=== PATIENT | male | born 1995 | race Caucasian/White ===

== ENCOUNTER 2025-01-30 01:06 | Emergency (ER) | payer BC ==
[2025-01-30 01:13] VITALS: RESP 18
[2025-01-30] MEDS: ACETAMINOPHEN TAB 325 MG TAB PO STA (01:50)
[2025-01-30] MEDS: SODIUM CHLORIDE 0.9% 1,000 ML IV STA (01:52)
--- NOTE | 2025-01-30 01:54 | ED ---
General Adult HPI - General Chief complaint: Syncope Stated complaint: Syncope and Collapse Time Seen by Provider: 01/30/25 01:08 Source: EMS Mode of arrival: EMS Limitations: no limitations - History of Present Illness Initial comments: Patient is a previously healthy 29 y/o male presenting today for syncopal episode. Pt states he has not had much to eat or drink today and has had mylagias and chills. This evening he was sitting on the toilet to urinate when he began to feel dizzy and then his girlfriend heard a "thud'. Pt was found leaning forward into the bathtub appearing to have passed out. She was unable to wake him and he appeared pale. 911 was called and his girlfriend was able to wake the patient after about 30-45 seconds. Upon EMS arrival pt was noted to have a drop in his BP upon standing. Pt sustained a small bruise to the lateral right eye brow. No seizure like activity noted. No tongue biting or urinary incontinence. Pt has not hx of seizures or prior syncopal episodes. Lo grade fevers today, last took cold and flu medicine at approximately 8. He endorses generalized bodyaches, left predominant in his back and neck but denies neck stiffness. Endorses a nonproductive cough. Denies sore throat, runny nose, nausea, vomiting, diarrhea, chest pain, shortness of breath, focal numbness or weakness. No family history of sudden cardiac . Patient is not on blood thinners. - Related Data Previous Rx's Medication Instructions Recorded Oseltamivir [Tamiflu] 75 mg PO Q12HR 5 Days #9 cap 01/30/25 Allergies Allergy/AdvReac Type Severity Reaction Status Date / Time No Known Allergies Allergy Verified 01/30/25 01:47 Review of Systems ROS Statement: Those systems with pertinent positive or pertinent negative responses have been documented in the HPI. ROS Other: All systems not noted in ROS Statement are negative. General Exam - General Exam Comments Initial Comments: PE: CONSTITUTIONAL: No apparent distress, nontoxic appearing though somewhat ill- appearing SKIN: Warm, dry, no jaundice, hives or petechiae. Small contusion to the lateral right eyebrow EYES: Pupils are equally round, extraocular movements intact without nystagmus, clear conjunctiva, non-icteric sclera HENT: Normocephalic, atraumatic, with exception of small contusion noted above, no bony tenderness, bony instability or crepitus on or near this contusion, dry mucus membranes, oropharynx clear without exudates NECK: , Full range of motion, normal appearance, no midline spinal tenderness to palpation PULMONARY: Clear to auscultation without wheezes, rhonchi, or rales, normal excursion, no accessory muscle use and no stridor CARDIOVASCULAR: Regular rate, rhythm, normal S1 and S2. No appreciated murmurs, rubs or gallops. Strong radial pulses with intact distal perfusion. No lower extremity edema GASTROINTESTINAL: Soft, active bowel sounds throughout, non-tender, non- distended, no palpable masses, no rebound or guarding. No hepatosplenomegaly MUSCULOSKELETAL: Extremities have no gross deformity, no edema, redness, or swelling. No calf swelling NEUROLOGIC:_a/o x 3, GCS 15, normal mentation and speech. Moves all extremities x 4 without motor or sensory deficit, negative Kernig's and Brudzinski signs PSYCHIATRIC:_normal mood and affect, thought process is clear and linear Limitations: no limitations Course Vital Signs 01/30/25 01/30/25 01/30/25 01:08 04:22 04:47 Temperature 100.2 F H 99.2 F Pulse Rate 93 97 Respiratory 18 18 Rate Blood Pressure 129/69 115/56 O2 Sat by Pulse 96 99 Oximetry EKG Findings - EKG Comments: EKG Findings:: Sinus rhythm, rate 87 bpm ID interval 158 ms QT/QTc 329/374 ms, no ST elevations or depressions, no arrhythmia, no delta waves, no Brugada pattern, no STEMI, overall reassuring EKG Medical Decision Making - Medical Decision Making Was pt. sent in by a medical professional or institution (, PA, STEM ROLLER, urgent care, hospital, or senior care...) When possible be specific @ -No Did you speak to anyone other than the patient for history (EMS, parent, family, police, friend...)? What history was obtained from this source @ -I spoke with patient's girlfriend who assisted in providing history as noted above, she heard patient lose consciousness, found him unconscious for about 30 to 45 seconds and was with him when he woke up, no seizure-like activity noted Did you review nursing and triage notes (agree or disagree)? Why? @ -I reviewed nursing and triage notes-patient reportedly orthostatic positive on EMS assessment Were old charts reviewed (outside hosp., previous admission, EMS record, old EKG, old radiological studies, urgent care reports/EKG's, senior care records)? Report findings @ -Medical records reviewed no prior records available for review Differential Diagnosis (chest pain, altered mental status, abdominal pain women, abdominal pain men, vaginal bleeding, weakness, fever, dyspnea, syncope, headache, dizziness, GI bleed, back pain, seizure, CVA, palpatations, mental health, musculoskeletal)? @Differential Syncope: Valvular disease, hypertrophic cardiomyopathy, tamponade, arrhythmia, ACS, hypovolemia, hemorrhage, anemia, intracranial hemorrhage, seizure, hypoglycemia, this is not meant to be an all-inclusive list. EKG interpreted by me (3pts min.). @ -As above X-rays interpreted by me (1pt min.). @I personally reviewed chest x-ray, I see no evidence of gross consolidations, pleural effusions or cardiomegaly, I agree with radiologist interpretation CT interpreted by me (1pt min.). Personally reviewed CT brain, I see no evidence of hemorrhage, skull fracture or mass effect U/S interpreted by me (1pt. min.). @ -None done What testing was considered but not performed or refused? (CT, X-rays, U/S, labs)? Why? @ -None What meds were considered but not given or refused? Why? @ -None Did you discuss the management of the patient with other professionals (professionals i.e. , PA, STEM ROLLER, lab, RT, psych nurse, social media analyst, concession attendant, teacher, senior commercial loan officer, cyanide case hardener)? Give summary @ -No Was smoking cessation discussed for >3mins.? @ -No Was critical care preformed (if so, how long)? @ -No Were there social determinants of health that impacted care today? How? (Homelessness, low income, unemployed, alcoholism, drug addiction, transportation, low edu. Level, literacy, decrease access to med. care, care home, rehab)? @ -No Was there de-escalation of care discussed even if they declined (Discuss DNR or withdrawal of care, Hospice)? @ -No What co-morbidities impacted this encounter? (DM, HTN, Smoking, COPD, CAD, Cancer, CVA, ARF, Chemo, Hep., AIDS, mental health diagnosis, sleep apnea, morbid obesity)? @ -None Was patient admitted / discharged? Hospital course, mention meds given and route, prescriptions, significant lab abnormalities, going to OR and other pertinent info. @Discharged-this is a pleasant previously well 29-year-old male presenting today for syncopal episode after a day of myalgias, cough, decreased appetite and decreased intake, low-grade fevers and chills. Patient is borderline febrile here 100.2, somewhat ill-appearing though nontoxic, awake and alert, no tongue biting noted, no midline spinal tenderness or neck stiffness and negative Kernig's and Brudzinski signs, no posterior oropharngeal erythema or exudates, reassuring cardiopulmonary exam, diagnosed migraines. Plan for CT brain given contusion noted on head exam, chest x-ray, viral testing, IV fluids, Tylenol, comprehensive labs. I highly suspect orthostatic syncope secondary to volume depletion given patient's decreased intake today, viral symptoms and orthostatic vital signs however additional differential diagnosis as noted above. Patient influenza A positive. Feels improved on reassessment. Tamiflu ordered for the patient and prescription sent to his pharmacy. Discussed plan for discharge home as well as return precautions. Patient understanding and agreeable plan of care. In my medical judgment there is currently no evidence of an immediate life- threatening or surgical condition. Discharge is therefore indicated at this time. Discharge treatment instructions, follow up instructions, and appropriate emergency department return precautions were discussed with the patient and/or medical decision maker. Patient and/or medical decision maker expressed understanding of and agreed with the treatment plan, follow up instructions, and emergency department return precaution. All patient's and/or medical decision maker's questions were answered. The patient was instructed to return to the ED for any changes in symptoms, persistent symptoms, inability to obtain proper follow-up or for any further concerns. Patient received verbal and written instructions for this condition. Undiagnosed new problem with uncertain prognosis? @ -No Drug Therapy requiring intensive monitoring for toxicity (Heparin, Nitro, Insulin, Cardizem)? @ -No Were any procedures done? @ -No Diagnosis/symptom? @Syncope, influenza A Acute, or Chronic, or Acute on Chronic? @Acute Uncomplicated (without systemic symptoms) or Complicated (systemic symptoms)? @Complicated Side effects of treatment? @ -No Exacerbation, Progression, or Severe Exacerbation? @ -No Poses a threat to life or bodily function? How? (Chest pain, USA, DC, pneumonia, PE, COPD, DKA, ARF, appy, cholecystitis, CVA, Diverticulitis, Homicidal, Suicidal, threat to staff... and all critical care pts) @ -No - Lab Data Result diagrams: 01/30/25 01:10 01/30/25 01:10 Lab Results 01/30/25 01/30/25 01/30/25 Range/Units 01:10 01:10 01:10 WBC 4.2 (3.8-10.6) k/uL RBC 4.75 (4.30-5.90) m/uL Hgb 13.6 (13.0-17.5) gm/dL Hct 41.6 (39.0-53.0) % MCV 87.6 (80.0-100.0) fL MCH 28.6 (25.0-35.0) pg MCHC 32.6 (31.0-37.0) g/dL RDW 12.8 (11.5-15.5) % Plt Count 88 L (150-450) k/uL MPV 9.2 Neutrophils % 73 % Lymphocytes % 13 % Monocytes % 11 % Eosinophils % 0 % Basophils % 0 % Neutrophils # 3.0 (1.3-7.7) k/uL Lymphocytes # 0.5 L (1.0-4.8) k/uL Monocytes # 0.5 (0-1.0) k/uL Eosinophils # 0.0 (0-0.7) k/uL Basophils # 0.0 (0-0.2) k/uL Manual Slide Review Performed PT 11.7 (10.0-12.5) sec INR 1.1 (<1.2) APTT 26.0 (22.0-30.0) sec Sodium 137 (137-145) mmol/L Potassium 4.0 (3.5-5.1) mmol/L Chloride 103 (98-107) mmol/L Carbon Dioxide 26 (22-30) mmol/L Anion Gap 8 mmol/L BUN 19 (9-20) mg/dL Creatinine 1.12 (0.66-1.25) mg/dL Est GFR (CKD-EPI)AfAm >90 (>60 ml/min/1.73 sqM) Est GFR (CKD-EPI)NonAf 87 (>60 ml/min/1.73 sqM) Glucose 120 H (74-99) mg/dL Calcium 8.1 L (8.4-10.2) mg/dL Magnesium 1.7 (1.6-2.3) mg/dL Total Bilirubin 0.7 (0.2-1.3) mg/dL AST 28 (17-59) U/L ALT 31 (4-49) U/L Alkaline Phosphatase 53 (38-126) U/L Troponin I (0.000-0.034) ng/mL NT-Pro-B Natriuret Pep 42 pg/mL Total Protein 6.2 L (6.3-8.2) g/dL Albumin 3.7 (3.5-5.0) g/dL Influenza Type A (PCR) (Not Detectd) Influenza Type B (PCR) (Not Detectd) RSV (PCR) (Not Detectd) SARS-CoV-2 (PCR) (Not Detectd) 01/30/25 01/30/25 Range/Units 01:10 01:53 WBC (3.8-10.6) k/uL RBC (4.30-5.90) m/uL Hgb (13.0-17.5) gm/dL Hct (39.0-53.0) % MCV (80.0-100.0) fL MCH (25.0-35.0) pg MCHC (31.0-37.0) g/dL RDW (11.5-15.5) % Plt Count (150-450) k/uL MPV Neutrophils % % Lymphocytes % % Monocytes % % Eosinophils % % Basophils % % Neutrophils # (1.3-7.7) k/uL Lymphocytes # (1.0-4.8) k/uL Monocytes # (0-1.0) k/uL Eosinophils # (0-0.7) k/uL Basophils # (0-0.2) k/uL Manual Slide Review PT (10.0-12.5) sec INR (<1.2) APTT (22.0-30.0) sec Sodium (137-145) mmol/L Potassium (3.5-5.1) mmol/L Chloride (98-107) mmol/L Carbon Dioxide (22-30) mmol/L Anion Gap mmol/L BUN (9-20) mg/dL Creatinine (0.66-1.25) mg/dL Est GFR (CKD-EPI)AfAm (>60 ml/min/1.73 sqM) Est GFR (CKD-EPI)NonAf (>60 ml/min/1.73 sqM) Glucose (74-99) mg/dL Calcium (8.4-10.2) mg/dL Magnesium (1.6-2.3) mg/dL Total Bilirubin (0.2-1.3) mg/dL AST (17-59) U/L ALT (4-49) U/L Alkaline Phosphatase (38-126) U/L Troponin I <0.012 (0.000-0.034) ng/mL NT-Pro-B Natriuret Pep pg/mL Total Protein (6.3-8.2) g/dL Albumin (3.5-5.0) g/dL Influenza Type A (PCR) Detected A (Not Detectd) Influenza Type B (PCR) Not Detected (Not Detectd) RSV (PCR) Not Detected (Not Detectd) SARS-CoV-2 (PCR) Not Detected (Not Detectd) Disposition Clinical Impression: Influenza A, Syncope Disposition: HOME SELF-CARE Condition: Good Instructions (If sedation given, give patient instructions): Syncope (ED), Influenza (ED) Additional Instructions: Every disease is a spectrum and a small chance still exists that a serious condition could develop, for this reason, please monitor yourself closely for new, changing or worsening symptoms, symptoms that do not improve in 72 hours, neck stiffness, confusion fever more than 4 days, chest pain, difficulty in breathing inability to tolerate/keep down fluids or your medications, inability to follow up with outpatient providers as instructed and should you experience these symptoms or should you have any further concerns for your wellbeing please return to the ED or call 911 immediately. Please drink plenty of fluid and get plenty of rest. [facility] law states that you are unable to drive or operate heavy machinery for 6 months after seizure or syncopal event. Please follow-up with your PCP for clearance. PLEASE call your primary care physician as soon as possible to arrange / discuss plan for followup appointment. Appointment in the next 1-3 days is strongly encouraged if possible. PLEASE let us know here before you leave if there is anything further we can do to be of any assistance. Take care and feel Better! Prescriptions: Oseltamivir [Tamiflu] 75 mg PO Q12HR 5 Days #9 cap Is patient prescribed a controlled substance at d/c from ED?: No Referrals: Tr Perkins MD [Primary Care Provider] - 1-2 days
[2025-01-30 02:11] LABS: Basophils % (A) 0 %; Eosinophils % (A) 0 %; HCT 41.6 % (39.0-53.0); HGB 13.6 gm/dL (13.0-17.5); Lymphocytes # (A) 0.5 k/uL (1.0-4.8); Lymphocytes % (A) 13 %; MCH 28.6 pg (25.0-35.0); MCHC 32.6 g/dL (31.0-37.0); MCV 87.6 fL (80.0-100.0); Mean Platelet Volume 9.2; Monocytes # (A) 0.5 k/uL (0-1.0); Monocytes % (A) 11 %; Neutrophils % (A) 73 %; RBC 4.75 m/uL (4.30-5.90); RDW 12.8 % (11.5-15.5); WBC 4.2 k/uL (3.8-10.6)
[2025-01-30 02:19] LABS: ALT 31 U/L (4-49); AST 28 U/L (17-59); African American GFR (CKD) >90 (>60 ml/min/1.73 sqM); Albumin 3.7 g/dL (3.5-5.0); Alkaline Phosphatase 53 U/L (38-126); Anion Gap 8 mmol/L; Blood Urea Nitrogen 19 mg/dL (9-20); Calcium 8.1 mg/dL (8.4-10.2); Carbon Dioxide 26 mmol/L (22-30); Chloride 103 mmol/L (98-107); Glucose 120 mg/dL (74-99); Magnesium 1.7 mg/dL (1.6-2.3); Non-African American GFR(CKD) 87 (>60 ml/min/1.73 sqM); Sodium 137 mmol/L (137-145); Total Bilirubin 0.7 mg/dL (0.2-1.3); Total Protein 6.2 g/dL (6.3-8.2)
[2025-01-30 02:26] LABS: NT-Pro-B-Type Natriuretic Pept 42 pg/mL
[2025-01-30 02:31] LABS: INR 1.1 (<1.2); Prothrombin Time 11.7 sec (10.0-12.5)
[2025-01-30 02:40] LABS: Influenza A Detected (Not Detectd); Influenza B Not Detected (Not Detectd); RSV Not Detected (Not Detectd)
[2025-01-30 02:56] LABS: Platelet Count 88 k/uL (150-450)
--- NOTE | 2025-01-30 03:03 | CT ---
EXAM: CT Head Without Intravenous Contrast CLINICAL HISTORY: Syncope, hit front side head on bathtub after TECHNIQUE: Axial computed tomography images of the head/brain without intravenous contrast. CTDI is 49.2 mGy and DLP is 1184.4 mGy-cm. This CT exam was performed using one or more of the following dose reduction techniques: automated exposure control, adjustment of the mA and/or kV according to patient size, and/or use of iterative reconstruction technique. COMPARISON: No relevant prior studies available. FINDINGS: Brain: Ventricles and sulci normal in size and configuration for age. No acute stroke. No acute hemorrhage. No abnormal extra-axial fluid collection. Ventricles: No hydrocephalus. No midline shift. Bones/joints: Unremarkable. No acute fracture. Soft tissues: Unremarkable. Sinuses: Unremarkable as visualized. No acute sinusitis. IMPRESSION: No acute post-traumatic intracranial abnormality.
[2025-01-30] MEDS: OSELTAMIVIR 75 MG CAP PO STA (03:41)
--- NOTE | 2025-01-30 04:14 | XR ---
EXAM: XR Chest, 2 Views CLINICAL HISTORY: syncope TECHNIQUE: Frontal and lateral views of the chest. COMPARISON: No relevant prior studies available. FINDINGS: Lungs: Hypoventilation with mild bibasilar atelectasis. No CHF. Pleural space: No pleural effusion. No pneumothorax. Heart: No cardiomegaly. Mediastinum: Unremarkable. Normal mediastinal contour. Bones/joints: Unremarkable. No acute fracture. IMPRESSION: Hypoventilation with mild bibasilar atelectasis.
[2025-01-30 04:22] VITALS: BP 115/56; PULSE 97
[2025-01-30] MEDS: ONDANSETRON 4 MG/2 ML VIAL IVP STA (04:22)
[2025-01-30] MEDS: KETOROLAC 15 MG/ML 1 ML VIAL IVP STA (04:23)
[2025-01-30 04:50] VITALS: TEMP 99.2
== END 2025-01-30 04:48 | disposition home or self-care (01) ==
LOC: EC 01:06
DX: J10.1 Influenza due to other identified influenza virus with other respiratory manifestations (principal); R55 Syncope and collapse
CPT/HCPCS: 36415; 93005; 83880; 80053; 83735; 84484; 85025; 85610; 85730; 87636; 71046; 70450; 99284; 96374; 96375; 96361 ×2; J2405; J1885

== ENCOUNTER → 2025-03-14 | Outpatient (CLI) | payer BC ==
--- NOTE | 2025-03-15 11:38 | CA ---
Transthoracic Echo Report Name: Tiffanie Caro Age: 29 Gender: M : 1995 Exam Date: 03/14/2025 15:54 Exam Location: [facility] Ht (in): 72 Wt (lb): 200 Ordering Physician: Tr Perkins MD Attending/Referring Phys: [id number], Maddie Hydraulic Press Operator Maribell Barton RDCS Procedure CPT: Indications: R55 SYNCOPE AND COLLAPSE Cardiac Hx: Technical Quality: Good Contrast 1: Total Dose (mL): Contrast 2: Total Dose (mL): MEASUREMENTS (Male / Female) Normal Values 2D ECHO LV Diastolic Diameter PLAX 4.6 cm 4.2 - 5.9 / 3.9 - 5.3 cm LV Systolic Diameter PLAX 3.2 cm IVS Diastolic Thickness 0.9 cm 0.6 - 1.0 / 0.6 - 0.9 cm LVPW Diastolic Thickness 0.9 cm 0.6 - 1.0 / 0.6 - 0.9 cm LV Relative Wall Thickness 0.4 LVOT Diameter 2.3 cm LV Diastolic Volume MOD BP 138.9 cm??? 67 - 155 / 56 - 104 cm??? LV Systolic Volume MOD BP 51.6 cm??? 22 - 58 / 19 - 49 cm??? LV Ejection Fraction MOD BP 62.8 % >= 55 % LV Cardiac Index MOD BP 2220.7 cm???/min???m??? LV Diastolic Volume MOD 4C 143.3 cm??? LV Systolic Volume MOD 4C 53.6 cm??? LV Ejection Fraction MOD 4C 62.6 % LV Cardiac Index MOD 4C 2282.8 cm???/min???m??? LV Diastolic Length 4C 9.7 cm LV Systolic Length 4C 7.5 cm LV Diastolic Volume MOD 2C 126.9 cm??? LV Systolic Volume MOD 2C 48.5 cm??? LV Ejection Fraction MOD 2C 61.7 % LV Cardiac Index MOD 2C 1994.0 cm???/min???m??? LV Diastolic Length 2C 9.1 cm LV Systolic Length 2C 7.3 cm LA Volume 56.5 cm??? 18 - 58 / 22 - 52 cm??? LA Volume Index 26.2 cm???/m??? 16 - 28 cm???/m??? Ascending Aorta Diameter 3.0 cm DOPPLER AV Peak Velocity 140.5 cm/s AV Peak Gradient 7.9 mmHg AV Mean Velocity 93.7 cm/s AV Mean Gradient 4.0 mmHg AV Velocity Time Integral 29.2 cm LVOT Peak Velocity 125.2 cm/s LVOT Peak Gradient 6.3 mmHg LVOT Velocity Time Integral 24.2 cm LVOT Stroke Volume 100.9 cm??? LVOT Stroke Volume Index 47.4 ml/m??? LVOT Cardiac Index 2568.9 cm???/min???m??? AV Area Cont Eq vti 3.5 cm??? AV Area Cont Eq pk 3.7 cm??? MV Area PHT 4.6 cm??? Mitral E Point Velocity 67.3 cm/s Mitral A Point Velocity 44.2 cm/s Mitral E to A Ratio 1.5 MV Deceleration Time 164.0 ms PV Peak Velocity 118.0 cm/s PV Peak Gradient 5.6 mmHg FINDINGS Left Ventricle Left ventricular ejection fraction is estimated at 55-60 %. Left ventricular cavity size normal. Left ventricular wall thickness normal. No obvious regional wall motion abnormalities. Right Ventricle Normal right ventricular size and function. Unable to estimate the right ventricular systolic pressure. Right Atrium Normal right atrial size. Left Atrium Normal left atrial size. Mitral Valve Structurally normal mitral valve. No evidence for mitral valve prolapse. No mitral stenosis. Trace mitral regurgitation. Aortic Valve Trileaflet aortic valve. No aortic valve stenosis or regurgitation. Tricuspid Valve Structurally normal tricuspid valve. No tricuspid stenosis. Trace tricuspid regurgitation. Pulmonic Valve Structurally normal pulmonic valve. No pulmonic stenosis. Trace pulmonic regurgitation. Pericardium No pericardial effusion. Aorta Normal size aortic root and proximal ascending aorta. CONCLUSIONS LVEF 55 to 60% No obvious regional wall motion abnormality No significant chamber size abnormality No significant valvular dysfunction No prior echo to compare with database Previewed by: Dr Aj Barbosa (Electronically Signed) Final Date: 15 March 2025 11:37
== END | disposition home or self-care (01) ==
LOC: RADECHMAIN 15:37
PROVIDERS: ATTEND Emergency Medicine
DX: I07.1 Rheumatic tricuspid insufficiency (principal); I37.1 Nonrheumatic pulmonary valve insufficiency; R55 Syncope and collapse
CPT/HCPCS: 93306